=== PATIENT | male | born 1985 | race Caucasian/White ===

== ENCOUNTER 2023-09-25 19:37 | Emergency (ER) | payer OTHER, SELFPAY ==
[2023-09-25 19:51] VITALS: BP 135/79; BMI 25.7
--- NOTE | 2023-09-25 20:59 | ED.GENMED ---
History of Present Illness
General
Chief Complaint: Numbness
Source: patient
Exam Limitations: none
Time Seen by Provider: 09/25/23 20:17
Nursing documentation reviewed up to this point in time: agreed with
Travel History
Have you had any contact with someone who has COVID-19?: No
Do you have any symptoms of coronavirus? Fever > 100 degrees, chills, cough, shortness of breath, sore throat, loss of taste or smell, muscle aches, or headache?: No
History of Present Illness
History of Present Illness:
Patient status post hip and pelvic reconstructive surgery after accident 1 year ago, presents to ED from [facility] secondary to worsening right leg numbness and weakness over the past 1 week. Denies new trauma. Denies
fever or chills. Patient was evaluated in ED recently for similar complaint, although at that time, his main presentation was increased pain. Since receiving evaluation ED, patient has developed numbness and weakness, along with pain.
Review of Systems
Review of Systems
Allergies reviewed?: Yes
All Other Systems: ROS reviewed and negative except as documented in HPI and ROS
Constitutional: Reports no symptoms
EENT: Reports no symptoms
Respiratory: Reports no symptoms
Cardiac: Reports no symptoms
ABD/GI: Reports no symptoms
: Reports no symptoms
Musculoskeletal: Reports other (hip pain)
Skin: Reports no symptoms
Neurological: Reports weakness and numbness
Phy Exam
Physical Exam
Physical Exam:
Physical Exam
General: no apparent distress, not acutely ill. afebrile
Head: nc/at. eomi
Neck: supple. normal range of motion
Neuro: alert and oriented. normal speech.
Skin: no rash
Psychiatric: well kept. interactive and cooperative
Extremities: RLE: normal DPP with <2 sec cap refill. Leg tightening up when rotated with pain.
Course
Vital Signs
Initial and Last Documented VS:
Initial Vital Signs
Pulse Resp BP Pulse Ox
119 18 135/79 100
09/25/23 19:51 09/25/23 19:51 09/25/23 19:51 09/25/23 19:51
Last Documented Vital Signs
Pulse Resp BP Pulse Ox
102 18 142/74 96
09/25/23 22:01 09/25/23 19:51 09/25/23 22:01 09/25/23 22:01
MDM/Problems Addressed
MDM/Problems Addressed:
CT pelvis report from recent ED evaluation reviewed.
Patient remains afebrile, hemodynamically stable, and comfortable during observation. Despite patient's subjective weakness complaint, during exam, patient has good color, normal distal pulse, good cap refill, is able to experience pain as well as
tightening his muscles when rotated and elevated. Although it is possible that there may be some ongoing numbness sensation due to extensive surgery, but I do not believe that he needs any emergent evaluation and treatment at this time. Patient
does understand that when he is released from nursing home, he needs to follow-up with his surgeon at [facility] for reevaluation.
*Critical Care Note
Total Time (30-74mins, 75-104mins- exclusive of procedures): Not Applicable
ED Attending Note
-
Portions of this chart may have been created with voice recognition software.� Occasional wrong word or��sound alike� substitutions may have occurred due to the inherent limitations of voice recognition software.
Discharge Plan
Departure
Patient Disposition: Long-Term
Date of Disposition: 09/25/23
Time of Disposition: 21:52
Patient with high blood pressure during this ER visit?: Yes
Discharge Problem:
Paresthesia
Instructions: Paresthesia (DC)
Referrals:
[facility] [Family Provider] -
Activity Restrictions/Additional Instructions:
As discussed, please follow-up with your orthopedic surgeon, as soon as you are released from [facility].
Interventions
Interventions:
*Risk Screen - Suicide Last Done: 09/25/23 19:51
*General Assessment Last Done: 09/25/23 19:51
*Neglect/Abuse Screening Last Done: 09/25/23 19:51
ED- Fall Risk Assessment Last Done: 09/25/23 22:01
*ED COVID-19 Vaccine History Last Done: 09/25/23 19:51
*Nursing Disposition Last Done: 09/25/23 22:01
Discharge Date and Time
Discharge Date/Time: 09/25/23 22:07
[2023-09-25 22:01] VITALS: BP 142/74
== END 2023-09-25 22:07 ==
LOC: EMR 19:37
PROVIDERS: EMERGENCY PHYSICIAN Emergency Medicine
DX: R20.2 Paresthesia of skin (principal)
CPT/HCPCS: 99282